=== PATIENT | female | born 1980 | race Caucasian/White ===

== ENCOUNTER 2021-01-23 13:12 | Emergency (ER) | payer OTHER ==
[2021-01-23 13:40] VITALS: BP 110/74; PULSE 82; TEMP 100.3; BMI 27.4
== END 2021-01-23 14:06 | disposition home or self-care (01) ==
LOC: JER 13:12
DX: B34.9 Viral infection, unspecified (principal)
CPT/HCPCS: 87804; 99284-25; C9803; U0003; U0005

== ENCOUNTER 2022-05-01 18:09 | Emergency (ER) | payer OTHER ==
[2022-05-01 18:16] VITALS: BP 120/70; PULSE 68; RESP 16; TEMP 98; BMI 23.1
[2022-05-01] MEDS ORDERED: DIPHTH,PERTUSS(ACELL),TET 0.5 ML DISP.SYRIN IM ONE ×2 (18:37)
[2022-05-01] MEDS ORDERED: BACITRACIN ZINC 15 GM TUBE TOPICAL OINTMENT ONE (19:37)
[2022-05-01] MEDS ORDERED: CEPHALEXIN MONOHYDRATE 500 MG CAPSULE (UD) ONE (19:37)
[2022-05-01] MEDS ORDERED: BACITRACIN ZINC 15 GM TUBE TOPICAL OINTMENT TP ONE (20:34)
[2022-05-01] MEDS ORDERED: CEPHALEXIN MONOHYDRATE 500 MG CAPSULE (UD) PO ONE (20:34)
[2022-05-01] MEDS ORDERED: IBUPROFEN 600 MG TABLET (FP) PO ONE ×2 (20:34→20:39)
== END 2022-05-01 20:15 | disposition home or self-care (01) ==
LOC: JERFT 18:09
PROC: 3E0234Z Introduction of Serum, Toxoid and Vaccine into Muscle, Percutaneous Approach (ICD-10-PCS; principal; 2022-05-01)
DX: S91.332A Puncture wound without foreign body, left foot, initial encounter (principal); W45.8XXA Other foreign body or object entering through skin, initial encounter
CPT/HCPCS: 73630-TC-LT; 90715; 99283-25